=== PATIENT | female | born 1955 | race Caucasian/White ===

== ENCOUNTER → 2020-01-24 13:10 | Outpatient (CLI) | payer BC, SELFPAY ==
--- NOTE | ~2020-01-24 | US_ITS ---
EXAMINATION: US thyroid DATE: 01/24/2020 13:34 INDICATION: Nontoxic goiter TECHNIQUE: Multiple ultrasound images of the thyroid were obtained. COMPARISON: 05/18/2018 FINDINGS: The right thyroid lobe measures 6.1 x 2.1 x 2.0 cm. The left thyroid lobe measures 6.1 x 2.0 x 2.1 c m. No significant interval change in a 1.4 x 1.3 x 1.2 cm wider than tall mixed solid and cystic nod ule with smooth margins at the inferior right thyroid. There is unchanged solid isoechoic component w ith more complex appearance with scattered tiny hyperechoic foci within the previously anechoic cysti c component (TI-RADS 2, not suspicious, no FNA recommended). There is a second taller than wide 1.3 x 1.1 x 1.0 cm solid isoechoic nodule with hypoechoic halo with ill-defined margins at the inferior mo st right thyroid (TI-RADS 4, moderately suspicious , FNA if >=1.5 cm, annual followup is >1 cm). 2 ad ditional similar-appearing solid hypoechoic nodules measuring 6 mm and 7 mm in maximal diameters at t he thyroid isthmus. There is heterogeneous echogenicity with coarsened echotexture throughout the rem ainder of the thyroid gland. IMPRESSION: 1. Multinodular goiter. Recommend one-year follow-up ultrasound for the new 1.3 cm TI-RADS 4 nodule a t the inferior right thyroid. Reviewed, dictated and finalized at location A. OOR STUDIES DIRECTOR IMPRESSION: 1. Multinodular goiter. Recommend one-year follow-up ultrasound for the new 1.3 cm TI-RADS 4 nodule at the inferior right thyroid.
== END ==
PROVIDERS: PCP Family Medicine; Visit Provider Family Medicine
DX: E04.2 Nontoxic multinodular goiter (principal)
CPT/HCPCS: 76536

== ENCOUNTER → 2021-01-29 11:46 | Outpatient (CLI) | payer BC, SELFPAY ==
--- NOTE | ~2021-01-29 | US_ITS ---
EXAMINATION: US thyroid DATE: 01/29/2021 12:08 INDICATION: Nontoxic goiter TECHNIQUE: Multiple ultrasound images of the thyroid were obtained. COMPARISON: 01/24/2020 FINDINGS: The right thyroid lobe measures 6.1 x 2.5 x 2.1 cm. The left thyroid lobe measures 5.8 x 2.5 x 2.3 c m. Thyroid isthmus measures 7 mm in thickness. There are a multiple small wider than tall solid hypoe choic nodule with either smooth or ill-defined margins (TI-RADS 3, mildly suspicious , FNA if >=2.5 c m, annual followup is >1.5 cm), the largest measuring 8 mm in the left thyroid lobe and a few measuri ng between 3-5 mm in maximal diameter and the right thyroid lobe and right side of the thyroid isthmu s. Minimal change in a 1.5 cm previously spongiform, currently necks solid and cystic with smooth mar gins and isoechoic solid component at the inferior right thyroid lobe. (TI-RADS 2, not suspicious, no FNA recommended). A previously noted apparent TI RADS 4 nodule at the caudal most aspect of the righ t thyroid lobe is not appreciated in the current study. Review of the prior imaging and comparison wi th the current imaging suggests the appearance on the prior study may have been artifactual due shado wing resulting from refraction artifact at the margins of the more cephalad nodule and the margins of the thyroid. Heterogeneous echogenicity and coarsened echotexture throughout the thyroid. IMPRESSION: 1. Multinodular goiter, none meeting consensus criteria for biopsy or follow-up. Reviewed, dictated and finalized at location B. M MECHANIC IMPRESSION: 1. Multinodular goiter, none meeting consensus criteria for biopsy or follow-up .
== END ==
PROVIDERS: PCP Family Medicine; Visit Provider Family Medicine
DX: E04.2 Nontoxic multinodular goiter (principal)
CPT/HCPCS: 76536

== ENCOUNTER → 2021-07-10 11:10 | Outpatient (CLI) | payer BC, SELFPAY ==
--- NOTE | ~2021-07-10 | DEXA_ITS ---
Bone Density Report Name: Maribel Taylor Age: 65 Sex: Female Ethnicity: White Date of : 1955 Indication: postmenopausal; screening for osteoporosis; Referring Provider: ASHLEY GARCIA Study: Bone densitometry was performed. Exam Date: July 10, 2021 Accession number: [id number] Bone Density: Region BMD T-score Z-score Classification AP Spine (L1-L4) 1.038 -0.1 1.6 Normal Femoral Neck (Left) 0.752 -0.9 0.6 Normal Total Hip (Left) 0.917 -0.2 1.0 Normal Femoral Neck (Right) 0.724 -1.1 0.3 Osteopenia Total Hip (Right) 0.879 -0.5 0.6 Normal Total Hip Mean 0.898 -0.4 0.8 Normal World Health Organization criteria for BMD impression classify patients as: Normal (T-score at or above -1.0), Osteopenia (T-score between -1.0 and -2.5), or Osteoporosis (T-score at or below -2.5). 10-year Fracture Risk(1): Major Osteoporotic Fracture 7.5% Hip Fracture 0.5% Reported Risk Factors: [place] (), Neck BMD=0.724, BMI=33.1 (1) FRAX(R) Version 3.08. Fracture probability calculated for an untreated patient. Fracture probability may be lower if the patient has received treatment. Previous Exams: Region Exam Age BMD T-score BMD Change BMD Change Date g/cm2 vs Baseline vs Previous AP Spine(L1-L4) 07/10/2021 65 1.038 -0.1 0.005 0.005 02/16/2019 63 1.033 -0.1 Total Hip(Left) 07/10/2021 65 0.917 -0.2 -0.011 -0.011 02/16/2019 63 0.928 -0.1 Total Hip(Right) 07/10/2021 65 0.879 -0.5 0.027 0.027 02/16/2019 63 0.852 -0.7 *Denotes significance at 95% confidence level, LSC for AP Spine = 0.022 g/cm2, LSC for Total Hip = 0.027 g/cm2 Clinical Information Provided by Patient: Has used the following medications: Vitamin D Patient maximum height was 68 Menopause Age: 56 No regular weight bearing exercise Drinks caffeinated beverages Onset of menses at age 14 Number of children 1 Impression: The patient has low bone mass, based on the Right Femoral Neck T-score. The patient has an estimated ten-year risk of hip fracture of 0.5% and an estimated ten-year risk of major fracture of 7.5%, based on the WHO FRAX algorithm. No significant bone loss was observed. Discussion: BONE DENSITY IS LOW AT ONE OR MORE SKELETAL SITES. This patient's lowest T-score is low at one or more skeletal sites. It meets the World Health Organization's (WHO) criteria for ?low bone mass? (T-score betw
== END ==
PROVIDERS: PCP Family Medicine; Visit Provider Family Medicine
DX: Z78.0 Asymptomatic menopausal state (principal); M85.851 Other specified disorders of bone density and structure, right thigh
CPT/HCPCS: 77080

== ENCOUNTER → 2021-07-30 10:37 | Outpatient (CLI) | payer BC, SELFPAY ==
--- NOTE | ~2021-07-30 | MM_ITS ---
EXAMINATION: MM screening jigna BI w tori HISTORY: Screening TECHNIQUE: Craniocaudal and mediolateral oblique 3-D tomosynthesis images were obtained and synthetic 2-D images were generated. CAD analysis was submitted and interpreted. COMPARISON: No prior mammogram is available for comparison at this institution. BREAST PARENCHYMAL COMPOSITION: There are scattered areas of fibroglandular density. FINDINGS: There are benign-appearing bilateral breast nodules next. There are no focal areas of archi tectural distortion or suspicious calcifications. IMPRESSION: 1. Benign appearing bilateral breast nodules. 2. Comparison to prior mammograms recommended. BI-RADS Category 0: Incomplete: Needs additional imaging evaluation. Reviewed, dictated and finalized at location A.
== END ==
PROVIDERS: PCP Family Medicine
DX: Z12.31 Encounter for screening mammogram for malignant neoplasm of breast (principal); R92.8 Other abnormal and inconclusive findings on diagnostic imaging of breast
CPT/HCPCS: 77063; 77067

== ENCOUNTER → 2022-10-13 12:37 | Outpatient (CLI) | payer MEDICARE, SELFPAY ==
--- NOTE | ~2022-10-13 | MM_ITS ---
EXAMINATION: MM screening jigna BI w tori HISTORY: Screening TECHNIQUE: Craniocaudal and mediolateral oblique 3-D tomosynthesis images were obtained and synthetic 2-D images were generated. CAD analysis was submitted and interpreted. COMPARISON: Comparison to multiple prior studies sequentially, with oldest reviewed study dated 08/29. BREAST PARENCHYMAL COMPOSITION: There are scattered areas of fibroglandular density. FINDINGS: Bilateral nodular asymmetries are unchanged from prior examinations allowing for difference s of technique. There is no evidence of suspicious mass, calcification, or architectural distortion t o suggest malignancy in either breast. There has been no suspicious interval change. IMPRESSION: 1. No mammographic evidence of malignancy. 2. Recommend routine screening mammography in one year. BI-RADS Category 2: Benign finding(s). Reviewed, dictated and finalized at location A. ECT ASST
== END ==
PROVIDERS: PCP Family Medicine
DX: Z12.31 Encounter for screening mammogram for malignant neoplasm of breast (principal)
CPT/HCPCS: 77063; 77067

== ENCOUNTER → 2023-12-13 11:07 | Outpatient (CLI) | payer MEDICARE, SELFPAY ==
--- NOTE | ~2023-12-13 | DEXA_ITS ---
Bone Density Report Name: MAYITO GREENWOOD Age: 68 Sex: Female Ethnicity: White Date of : 1955 Indication: postmenopausal; screening for osteoporosis; height loss; Referring Provider: ASHLEY GARCIA Study: Bone densitometry was performed. Exam Date: December 13, 2023 Accession number: [id number] Bone Density: Region BMD T-score Z-score Classification AP Spine (L1-L4) 1.074 0.2 2.1 Normal Femoral Neck (Left) 0.731 -1.1 0.5 Osteopenia Total Hip (Left) 0.912 -0.2 1.1 Normal Femoral Neck (Right) 0.697 -1.4 0.2 Osteopenia Total Hip (Right) 0.873 -0.6 0.7 Normal Total Hip Mean 0.893 -0.4 0.9 Normal World Health Organization criteria for BMD impression classify patients as: Normal (T-score at or above -1.0), Osteopenia (T-score between -1.0 and -2.5), or Osteoporosis (T-score at or below -2.5). 10-year Fracture Risk(1): Major Osteoporotic Fracture 8.3% Hip Fracture 0.8% Reported Risk Factors: [place] (), Neck BMD=0.697, BMI=33.9 (1) FRAX(R) Version 3.08. Fracture probability calculated for an untreated patient. Fracture probability may be lower if the patient has received treatment. Previous Exams: Region Exam Age BMD T-score BMD Change BMD Change Date g/cm2 vs Baseline vs Previous AP Spine(L1-L4) 12/13/2023 68 1.074 0.2 0.041* 0.035* 07/10/2021 65 1.038 -0.1 0.005 0.005 02/16/2019 63 1.033 -0.1 Total Hip(Left) 12/13/2023 68 0.912 -0.2 -0.016 -0.005 07/10/2021 65 0.917 -0.2 -0.011 -0.011 02/16/2019 63 0.928 -0.1 Total Hip(Right) 12/13/2023 68 0.873 -0.6 0.021 -0.006 07/10/2021 65 0.879 -0.5 0.027 0.027 02/16/2019 63 0.852 -0.7 *Denotes significance at 95% confidence level, LSC for AP Spine = 0.022 g/cm2, LSC for Total Hip = 0.027 g/cm2 Clinical Information Provided by Patient: Has used the following medications: Vitamin D Patient maximum height was 68 Menopause Age: 56 No regular weight bearing exercise Does not regularly consume dairy products Drinks caffeinated beverages Onset of menses at age 14 Number of children 1 Impression: The patient has low bone mass, based on the Right Femoral Neck T-score. The patient has an estimated ten-year risk of hip fracture of 0.8% and an estimated ten-year risk of major fracture of 8.3%, based on the WHO FRAX algorithm. No sig
== END ==
PROVIDERS: Visit Provider Family Medicine
DX: M85.88 Other specified disorders of bone density and structure, other site (principal); N95.0 Postmenopausal bleeding
CPT/HCPCS: 77080

== ENCOUNTER 2024-02-17 12:25 | Outpatient (CLI) | payer MEDICARE, SELFPAY ==
--- NOTE | ~2024-02-17 | MM_ITS ---
EXAMINATION: MM screening jigna BI w tori HISTORY: Screening TECHNIQUE: Craniocaudal and mediolateral oblique 3-D tomosynthesis images were obtained and synthetic 2-D images were generated. CAD analysis was submitted and interpreted. COMPARISON: Comparison to multiple prior studies sequentially, with oldest reviewed study dated 08/29. BREAST PARENCHYMAL COMPOSITION: Not dense: There are scattered areas of fibroglandular density. FINDINGS: There is no evidence of suspicious mass, calcification, or architectural distortion to sugg est malignancy in either breast. There has been no suspicious interval change. IMPRESSION: 1. No mammographic evidence of malignancy. 2. Recommend routine screening mammography in one year. BI-RADS Category 1: Negative Reviewed, dictated and finalized at location A.
== END 2024-02-17 12:26 ==
LOC: MICIMG 12:26
PROVIDERS: Visit Provider Family Medicine
DX: Z12.31 Encounter for screening mammogram for malignant neoplasm of breast (principal)
CPT/HCPCS: 77063; 77067